=== PATIENT | male | born 1985 ===

== ENCOUNTER 2017-10-23 04:43 | Emergency (ER) | payer SELFPAY ==
[2017-10-23 04:58] VITALS: TEMP 98.6
--- NOTE | 2017-10-23 05:33 | ED PDOC ---
HPI: Psych/Substance Abuse Time Seen by Provider: 10/23/17 05:00 Chief Complaint (Nursing): Alcohol Ingestion Chief Complaint (Provider): Alcohol Ingestion ED Caveat: Intoxicated History Per: EMS History/Exam Limitations: intoxication Current Symptoms Are (Timing): Still Present Suicide/Self Injury Attempted (Context): None Modifying Factor(s): Alcohol Additional Complaint(s): 32 year old male brought in by EMS presents to ED due to alcohol intoxication and has an unknown past medical history. Due to patient's intoxicated state, H& P are limited. EMS states patient was found in the lobby of his home, but was too intoxicated to enter his apartment. PCP: Dr. Landaverde Past Medical History Reviewed: Nursing Documentation, Vital Signs Vital Signs: Last Vital Signs Temp 98.6 F 10/23/17 04:56 Pulse 97 H 10/23/17 04:56 Resp 16 10/23/17 04:56 BP 128/70 10/23/17 04:56 Pulse Ox 98 10/23/17 04:56 - Family History Family History: States: Unknown Family Hx - Social History Alcohol: Social - Immunization History Hx Tetanus Toxoid Vaccination: No Hx Influenza Vaccination: No Hx Pneumococcal Vaccination: No - Home Medications Home Medications: Ambulatory Orders Medication Instructions Recorded No Known Home Med [No Known Home 01/29/14 Med] - Allergies Allergies/Adverse Reactions: Allergies Allergy/AdvReac Type Severity Reaction Status Date / Time No Known Allergies Allergy Unverified 01/29/14 22:43 Review of Systems Review Of Systems: ROS cannot be obtained secondary to pt's inabilty to answer questions. (due to intoxication) Physical Exam - Reviewed Nursing Documentation Reviewed: Yes Vital Signs Reviewed: Yes - Physical Exam Appears: Positive for: Non-toxic, No Acute Distress (alcohol on breath) Skin: Positive for: Normal Color, Warm, Dry Cardiovascular/Chest: Positive for: Regular Rate, Rhythm. Negative for: Murmur Respiratory: Negative for: Respiratory Distress Gastrointestinal/Abdominal: Positive for: Soft. Negative for: Tenderness Neurologic/Psych: Negative for: Alert, Oriented, Motor/Sensory Deficits - ECG O2 Sat by Pulse Oximetry: 98 (RA) Pulse Ox Interpretation: Normal Medical Decision Making Medical Decision Makin Initial impression: alcohol intoxication Initial plan: * EtOH serum * Accucheck 0700 Patient will be signed out to Dr. Morrell pending sobriety. Scribe Attestation: Documented by Hannah Villalobos acting as a scribe for Jonah Shearer MD. Scribe Attestation: All medical record entries made by the Scribe were at my direction and personally dictated by me. I have reviewed the chart and agree that the record accurately reflects my personal performance of the history, physical exam, medical decision making, and the department course for this patient. I have also personally directed, reviewed, and agree with the discharge instructions and disposition. Disposition - Disposition Disposition: Transfer of Care Disposition Time: 07:00 Condition: STABLE Forms: [employer] [facility] (Lithuanian) Patient Signed Over To: Lillie Morrell Handoff Comments: pending sobriety
--- NOTE | 2017-10-23 12:58 | ED PDOC ---
- ECG O2 Sat by Pulse Oximetry: 96 Disposition Doctor Will See Patient In The: Office Counseled Patient/Family Regarding: Diagnosis, Need For Followup - Clinical Impression Clinical Impression: Alcohol abuse with intoxication - POA Present On Arrival: None - Disposition Disposition: Routine/Home Disposition Time: 12:58 Condition: STABLE Instructions: Alcohol Abuse and Alcoholism (DC) Forms: [facility] (Irish) Print Language: INDONESIAN
[2017-10-23 13:00] VITALS: BP 100/60; PULSE 62; RESP 14; O2SAT 97
== END 2017-10-23 13:01 | disposition home or self-care (01) ==
LOC: H.ER 04:43
DX: F10.129 Alcohol abuse with intoxication, unspecified (principal)
CPT/HCPCS: 82948; 99283; G0480

== ENCOUNTER 2018-03-15 03:48 | Emergency (ER) | payer SELFPAY ==
[2018-03-15 03:53] VITALS: RESP 16; O2SAT 98
--- NOTE | 2018-03-15 05:33 | ED PDOC ---
HPI: Psych/Substance Abuse Time Seen by Provider: 03/15/18 04:03 Chief Complaint (Nursing): Alcohol Ingestion History Per: Patient Additional Complaint(s): 32 yo M presents for alcohol intoxication, he admits to drinking. Denies any trauma, injury, headache, CP, SOB, N/V, abdominal pain, depression, SI, HI. Has no complaints. Past Medical History Vital Signs: Last Vital Signs Temp 98.6 F 03/15/18 03:51 Pulse 88 03/15/18 03:51 Resp 16 03/15/18 03:51 BP 128/91 H 03/15/18 03:51 Pulse Ox 98 03/15/18 03:51 - Family History Family History: States: Unknown Family Hx - Immunization History Hx Tetanus Toxoid Vaccination: No Hx Influenza Vaccination: No Hx Pneumococcal Vaccination: No - Home Medications Home Medications: Ambulatory Orders Medication Instructions Recorded No Known Home Med [No Known Home 01/29/14 Med] - Allergies Allergies/Adverse Reactions: Allergies Allergy/AdvReac Type Severity Reaction Status Date / Time No Known Allergies Allergy Unverified 01/29/14 22:43 Review of Systems Constitutional: Negative for: Fever, Malaise Cardiovascular: Negative for: Chest Pain, Palpitations Respiratory: Negative for: Cough, Shortness of Breath Gastrointestinal: Negative for: Nausea, Vomiting, Abdominal Pain Genitourinary Male: Negative for: Dysuria Musculoskeletal: Negative for: Neck Pain, Back Pain Skin: Negative for: Rash Neurological: Negative for: Weakness, Numbness Physical Exam - Physical Exam Appears: Positive for: Well, Non-toxic, No Acute Distress (+odor of alcohol ) Head Exam: Positive for: ATRAUMATIC, NORMAL INSPECTION, NORMOCEPHALIC Skin: Positive for: Normal Color, Warm, DRY Eye Exam: Positive for: EOMI, Normal appearance, PERRL ENT: Positive for: Normal ENT Inspection Neck: Positive for: Normal, Painless ROM Cardiovascular/Chest: Positive for: Regular Rate, Rhythm Respiratory: Positive for: CNT, Normal Breath Sounds Gastrointestinal/Abdominal: Positive for: Normal Exam, Soft. 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 Negative for: Motor/Sensory Deficits - ECG O2 Sat by Pulse Oximetry: 98 Medical Decision Making Medical Decision Making: Will observe patient until clinically sober. On re-evaluation, patient is AAOx3, with no slurred speech, no tremors, able to ambulate with a steady gait. Patient is stable for d/c. 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
[2018-03-15 06:35] VITALS: BP 128/86; PULSE 82; TEMP 97.9
== END 2018-03-15 06:35 | disposition home or self-care (01) ==
LOC: H.ER 03:48
DX: F10.129 Alcohol abuse with intoxication, unspecified (principal)